=== PATIENT | male | born 1985 ===

== ENCOUNTER → 2020-08-05 | Outpatient (CLI) | payer OTHER | LOC: COL.RAD 11:56 | DX: M71.22 Synovial cyst of popliteal space [Baker], left knee (principal); Z98.890 Other specified postprocedural states ==

== ENCOUNTER 2020-08-08 09:29 | Outpatient (RCR) | payer OTHER | END 2020-08-19 12:31 | disposition home or self-care (01) | LOC: WSOH 09:29 | DX: M25.562 Pain in left knee (principal); Y99.0 Civilian activity done for income or pay; Z98.890 Other specified postprocedural states ==